=== PATIENT | female | born 1975 | race Caucasian/White ===

== ENCOUNTER 2018-07-25 09:58 | Observation (INO) | payer BC ==
[2018-07-25 10:14] LABS: BASOPHILS % 0.5 (0.0-1.5); EOSINOPHILS % 1.3 % (0.0-6.8); MEAN CORPUSCULAR HEMOGLOBIN 30.5 pg (28.0-34.0); MONOCYTES % 4.1 % (0.0-11.0); NEUTROPHILS # 6.9 # k/uL (1.4-7.7)
[2018-07-25 10:32] LABS: eGFR (Non-African) > 60
--- NOTE | 2018-07-25 10:41 | Diagnostic Imaging Report ---
BHARAT ALLEN [facility] [address] [facility].[address] [address] Report Submission Date: Jul 25, 2018 10:37:55 AM SUPERVISOR PLASMA Patient Study Name: MALACHI HESTER Date: Jul 25, 2018 10:11:46 AM SUPERVISOR PLASMA Modality Type: DX Gender: F Description: ABDOMEN : 79 Institution: [facility] Physician: BHARAT ALLEN KUB History: Sudden onset of groin pain with nausea and vomiting Two supine views of the abdomen demonstrate a nonobstructive bowel gas pattern. There is increased stool in the right colon. No abnormal calcifications are noted. Surgical clips are present in the pelvis. Small sclerotic foci are present of the superior and inferior left pubic rami and of the left ilium, likely bone islands. The largest is of the left ilium measuring 1.2 cm. Impression: Increased stool in the right colon. Otherwise, nonobstructive bowel gas pattern. Surgical clips in the pelvis. Probable bone islands of the left hemipelvis as described. Electronically signed on Jul 25, 2018 10:37:55 AM SUPERVISOR PLASMA by: China CARDOSO
[2018-07-25 11:12] LABS: APPEARANCE,URINE CLEAR (CLEAR); COLOR,URINE YELLOW (YELLOW); OCCULT BLOOD,URINE TRACE-INTACT (NEGATIVE); PH URINE 6.5 (5.0 - 8.0); UROBILINOGEN URINE 0.2 Eu (0.2-1.0)
[2018-07-25] MEDS ORDERED: ONDANSETRON HCL 4 MG TAB.RAPDIS ONE (12:00)
[2018-07-25] MEDS ORDERED: PROMETHAZINE HCL 25 MG in 0.9 % SODIUM CHLORIDE 50 ML IV PRN (14:43)
[2018-07-25 15:21] VITALS: BMI 25.2
[2018-07-25] MEDS: 0.9 % SODIUM CHLORIDE 1,000 ML IV SCH (15:39)
[2018-07-25] MEDS ORDERED: MORPHINE SULFATE 4 MG/ML PREFILLED SYR ONE (20:04)
[2018-07-25] MEDS: ONDANSETRON HCL/PF 4 MG/ 2ML VIAL IVP PRN (20:08)
[2018-07-25] MEDS: MORPHINE SULFATE 4 MG/ML VIAL IVP PRN (20:10)
[2018-07-26] MEDS: 0.9 % SODIUM CHLORIDE 1,000 ML IV SCH ×2 (03:35→12:42)
--- NOTE | 2018-07-26 07:51 | Inpatient Progress Note ---
Objective - Exam Vitals and I&O: Vital Signs Temp 98.5 F 07/26/18 06:00 Pulse 62 07/26/18 06:00 Resp 18 07/26/18 06:00 BP 90/50 07/26/18 06:00 Pulse Ox 99 07/26/18 06:00 Intake & Output 07/25/18 07/25/18 07/26/18 11:59 23:59 11:59 Intake Total 560 100 Output Total 600 Balance -40 100 Weight 68.946 kg Intake: IV 200 100 Right Antecubital 200 100 Oral 360 Output: Urine 600 Other: Voiding Method Toilet Toilet # Voids 2 - Results Results: Laboratory Results WBC 9.80 K/ul (4.00-12.00) 07/25/18 10:00 RBC 4.87 M/ul (3.90-5.20) 07/25/18 10:00 Hgb 14.8 g/dL (12.0-16.0) 07/25/18 10:00 Hct 44.3 % (34.5-46.5) 07/25/18 10:00 MCV 91.0 fl (80.0-100.0) 07/25/18 10:00 MCH 30.5 pg (28.0-34.0) 07/25/18 10:00 MCHC 33.5 g/dL (30.0-36.0) 07/25/18 10:00 RDW 12.5 % (11.3-14.3) 07/25/18 10:00 Plt Count 270 K/mm3 (130-400) 07/25/18 10:00 Neut % (Auto) 70.2 % (39.0-79.0) 07/25/18 10:00 Lymph % (Auto) 23.9 % (16.0-50.0) 07/25/18 10:00 [place] % (Auto) 4.1 % (0.0-11.0) 07/25/18 10:00 Eos % (Auto) 1.3 % (0.0-6.8) 07/25/18 10:00 Baso % (Auto) 0.5 (0.0-1.5) 07/25/18 10:00 Neut # (Auto) 6.9 # k/uL (1.4-7.7) 07/25/18 10:00 Lymph # (Auto) 2.3 # k/uL (0.6-4.0) 07/25/18 10:00 [place] # (Auto) 0.4 # k/uL (0.0-0.9) 07/25/18 10:00 Eos # (Auto) 0.1 # k/uL (0.0-0.6) 07/25/18 10:00 Baso # (Auto) 0.1 # k/uL (0.0-0.5) 07/25/18 10:00 Sodium 136 mmol/L (136-145) 07/25/18 10:00 Potassium 3.5 mmol/L (3.5-5.1) 07/25/18 10:00 Chloride 103 mmol/L (98-107) 07/25/18 10:00 Carbon Dioxide 27 mmol/L (22-30) 07/25/18 10:00 BUN 11 mg/dL (7-17) 07/25/18 10:00 Creatinine 0.68 mg/dL (0.52-1.04) 07/25/18 10:00 Est GFR ( Amer) > 60 (60-) 07/25/18 10:00 Est GFR (Non-Af Amer) > 60 (60-) 07/25/18 10:00 Glucose 95 mg/dL (74-106) 07/25/18 10:00 Calcium 8.6 mg/dL (8.4-10.2) 07/25/18 10:00 Total Bilirubin 0.8 mg/dL (0.2-1.3) 07/25/18 10:00 AST 23 U/L (15-46) 07/25/18 10:00 ALT 23 U/L (13-69) 07/25/18 10:00 Alkaline Phosphatase 70 U/L (38-126) 07/25/18 10:00 Total Protein 7.1 g/dL (6.3-8.2) 07/25/18 10:00 Albumin 4.5 g/dL (3.5-5.0) 07/25/18 10:00 Lipase 81 U/L (23-300) 07/25/18 10:00 Urine Color Yellow (YELLOW) 07/25/18 10:20 Urine Appearance Clear (CLEAR) 07/25/18 10:20 Urine pH 6.5 (5.0 - 8.0) 07/25/18 10:20 Ur Specific Botkins >=1.030 (1.010-1.030) H 07/25/18 10:20 Urine Protein Negative mg/dL (NEGATIVE) 07/25/18 10:20 Urine Ketones Trace mg/dL (NEGATIVE) H 07/25/18 10:20 Urine Occult Blood Trace-intact (NEGATIVE) H 07/25/18 10:20 Urine Nitrite Negative (NEGATIVE) 07/25/18 10:20 Urine Bilirubin Negative (NEGATIVE) 07/25/18 10:20 Urine Urobilinogen 0.2 Eu (0.2-1.0) 07/25/18 10:20 Ur Leukocyte Esterase Negative (NEGATIVE) 07/25/18 10:20 Urine Glucose Negative mg/dL (NEGATIVE) 07/25/18 10:20
[2018-07-26 09:05] LABS: eGFR (Non-African) > 60
--- NOTE | 2018-07-26 09:08 | Diagnostic Imaging Report ---
BHARAT ALLEN [facility] [address] [facility] [address] [place] [address]. [id number] Report Submission Date: Jul 26, 2018 9:07:26 AM PSYCH SOCIAL WORKER Patient Study Name: MALACHI HESTER Date: Jul 26, 2018 8:08:44 AM PSYCH SOCIAL WORKER Modality Type: CT Gender: F Description: CT ABD PELVIS W/ CON : 79 Institution: [facility] Physician: BHARAT ALLEN Examination: CT Abdomen/pelvis History: WORSENING ABDOMINAL PAIN WITH NAUSEA, VOMITING, AND DIARRHEA. HX OF HYSTERECTOMY AND TUBAL LIGATION Comparison exams: Plain film dated 25 July 2018 Technique: CT Abdomen/pelvis with IV protocol. Findings: Liver demonstrates a 1 cm cyst within the posterior aspect of the right hepatic lobe. Spleen, adrenals, pancreas and kidneys are without gross central irregularity. Possible 1 mm calcification involving the gallbladder lumen. No suspicious renal calcifications. Ureters are nondilated in their course through the abdomen and pelvis. No central calcifications. Bladder margin within normal limits. Abdominal aorta without aneurysm or peripheral atherosclerotic disease. Cardiac silhouette is not enlarged. No pericardial effusion. Free fluid projecting around the liver. Large cystic structure within the central lower pelvis measuring 6.2 cm diameter. Minimal peripheral enhancement. Surgical clips along the inferior margin. Fluid and mesenteric stranding within the lower pelvic region. Mesenteric stranding extending along the right posterior gutter region. Small bowel with few scattered air-fluid levels. Possible mild distal small bowel mucosal thickening. Appendix not visualized. Fluid within the large bowel. Osseous structures appropriate for age. Lung bases demonstrate dependent atelectasis without infiltrate. No effusion. Bilateral breast implants. Impression: Large cystic structure within the lower pelvis measuring 6.2 cm diameter. Adjacent fluid and mesenteric stranding. Could represent sequela of patient's reported prior surgery. Infectious/inflammatory process, such as abscess, cannot be excluded. Abdominal fluid/ascites tracking around the liver with mesenteric stranding involving the right gutter region. Few scattered small bowel air fluid levels with questionable mucosal thickening involving the distal small bowel. Possible small gallstone. Further evaluate with right upper quadrant ultrasound if clinically warranted. No suspicious renal calcifications or abnormal ureteric dilation. No lung base consolidation or effusion. Electronically signed on Jul 26, 2018 9:07:26 AM PSYCH SOCIAL WORKER by: Alvin CARDOSO
[2018-07-26 09:26] LABS: BASOPHILS % 0.2 (0.0-1.5); EOSINOPHILS % 1.6 % (0.0-6.8); MEAN CORPUSCULAR HEMOGLOBIN 30.4 pg (28.0-34.0); MONOCYTES % 5.2 % (0.0-11.0); NEUTROPHILS # 4.8 # k/uL (1.4-7.7)
[2018-07-26] MEDS: ONDANSETRON HCL/PF 4 MG/ 2ML VIAL IVP PRN (10:26)
[2018-07-26] MEDS: MORPHINE SULFATE 4 MG/ML VIAL IVP PRN (10:27)
[2018-07-26 10:59] VITALS: BP 132/58
--- NOTE | 2018-07-28 18:09 | Discharge Summary ---
Discharge Summary - Discharge Sumary History of Present Illness: (Admitted on 07/25/18) Patient was at work when she had a sudden onset of N/V and abdominal pain. She was feeling fine around 8 a.m. and by 9:00 symptoms had worsened. She eventually checked into the ER. She does not feel that she ate or drank anything that could of caused symptoms. She denies any fever or chills, no chest pain or shortness of breath. Condition at Discharge: Stable Home Medications: Ambulatory Orders Medication Instructions Recorded Alprazolam [Xanax] 0.25 mg PO DAILY PRN u2 02/18/17 Multivitamin [Multi-Vitamin Daily] 1 each PO DAILY u2 02/18/17 Trintellix 5 mg PO DAILY u2 02/18/17 Consultations this Visit: Other (Acute surgery at [facility]- Dr. Araujo) Procedures this Visit: Other (CT of abdomen and Pelvis) Allergies/Adverse Reactions: Allergies Allergy/AdvReac Type Severity Reaction Status Date / Time ibuprofen Allergy Unknown Verified 07/25/18 16:32 Discharge Summary: 07/26/18 Patient continued to have nausea and abdominal pain- not really improving- ct of abdomen and pelvis completed and mass was found. Discussed results with Dr. Araujo (surgery) at the [facility] (per pt request) and he suggested transferring her to [facility] to be evaluated- pt is in agreement- transfer arranged and patient transferred to [place] via EMS Hospital Course: CT of Abdomen and Pelvis: Impression: Large cystic structure within the lower pelvis measuring 6.2 cm diameter. Adjacent fluid and mesenteric stranding. Could represent sequela of patient's reported prior surgery. Infectious/inflammatory process, such as abscess, cannot be excluded. Abdominal fluid/ascites tracking around the liver with mesenteric stranding involving the right gutter region. Few scattered small bowel air fluid levels with questionable mucosal thickening involving the distal small bowel. - Final Diagnosis (1) Pelvic mass in female Problems: Will see surgeon Right or Left: Right (2) Nausea & vomiting Problems: antiemetics ordered throughout hospitalization Right or Left: Right (3) Abdominal pain Problems: Treated with pain medications Right or Left: Right
== END 2018-07-26 12:05 | disposition short-term general hospital (02) ==
LOC: ED 09:58 → SOUTH 14:40
PROVIDERS: ADMIT Nurse Practitioner Family; ATTEND Nurse Practitioner Family
DX: R19.03 Right lower quadrant abdominal swelling, mass and lump (principal); R11.2 Nausea with vomiting, unspecified
CPT/HCPCS: 74018; 74177; 80048; 80053; 81002; 83690; 85025; 96374; 96375; A9270; G0378; J2270; J2405; J2550; J7030; Q9967; 99217; S1016

== ENCOUNTER 2018-09-05 09:13 | Day surgery (SDC) | payer BC ==
[~2018-09-05 09:13] MED LIST: LACTATED RINGERS 1,000 ML IV.SOLN IV ONE; LIDOCAINE HCL 2% PF 100MG/5ML VIAL IJ ONE; PROPOFOL 500 MG/50 ML VIAL IV ONE
--- NOTE | 2018-09-20 13:52 | GI Report ---
PROCEDURE PERFORMED: Colonoscopy with biopsies. SURGEON: Ruthy Hamilton M.D., ZaydaCEugene. INDICATION FOR PROCEDURE: The patient is a 43-year-old woman who has change in bowel habits, mucus in the stool, abdominal pain. She had a CAT scan 07/26/18 because of pain and vomiting. She had a cyst in her pelvis and there was a question of mucosal thickening of the distal small bowel. The patient has a number of family members with Crohns disease. She has never been a smoker. She has had a hysterectomy, and then a recent laparoscopic repair of a torsion of her ovary in July 2018. She is referred for the above indications. PROCEDURE MEDICATION: Propofol, as per Anesthesia. DESCRIPTION OF PROCEDURE: The Olympus video colonoscope was advanced into the rectum. The patient has a slightly atonic, redundant colon. I see no diverticula. It took some maneuvering to finally reach the cecum. The appendiceal orifice was normal. The terminal ileum was normal. We advanced about 8 cm up the terminal ileum. I saw no ulceration. We did take 3 biopsies for pathology. On slow withdrawal, the cecum, ascending colon and transverse colon, redundancy but normal mucosa. No ulceration. The transverse colon, descending colon and sigmoid colon, again redundancy. No obvious ulceration. We did take random biopsies throughout the colon looking for microscopic colitis. The sigmoid colon I dont see diverticula. No obvious ulceration. Retroflexion in the rectum was normal. The patient tolerated the procedure well. FINDINGS: The patient has kind of a redundant, spastic colon. Biopsies were taken both of the small bowel and the colon looking for microscopic colitis, though grossly it looks normal. RECOMMENDATIONS: 1. At present pending the biopsy results would add fiber to her diet such as Benefiber, possibly a low FODMAP diet decreasing carbohydrates fermentable such as wheat and using low lactose. 2. Follow up biopsy results. 3. If her pain persists at some point, small bowel evaluation would be a consideration such as capsule endoscopy and/or small bowel x-ray. RUTHY HAMILTON M.D., F.A.C.P. [facility]LE[facility]/suni R: 09/19/18 Job#: [id number] Cc: LILI Scruggs [id number] [facility] [place] [address] Sent via ] JANAE
== END 2018-09-05 11:59 | disposition home or self-care (01) ==
LOC: OPSURG 09:13
PROVIDERS: ATTEND Internal Medicine Gastroenterology
DX: K59.8 Other specified functional intestinal disorders (principal); R10.9 Unspecified abdominal pain; R19.4 Change in bowel habit; R19.5 Other fecal abnormalities
CPT/HCPCS: 45380; J2001; J2704; J7120; S1016

== ENCOUNTER 2019-03-30 16:39 | Outpatient (CLI) | payer BC ==
--- NOTE | 2019-03-30 19:01 | Diagnostic Imaging Report ---
BHARAT ALLEN [facility] [address] [facility] [address] [address] Report Submission Date: Mar 30, 2019 5:17:24 PM CDT Patient Study Name: MALACHI HESTER Date: Mar 30, 2019 4:46:46 PM CDT Modality Type: DX Gender: F Description: CHEST 2VIEW : 79 Institution: [facility] Physician: BHARAT ALLEN Pa and lateral chest Clinical history :short of breath coughing Technique pa and lateral upright Findings: The lung duff are clear. I see no hilar or mediastinal mass. There is no pleural effusion or lesion of the bony thorax. Impression: No acute pulmonary disease Electronically signed on Mar 30, 2019 5:17:24 PM CDT by: Carlos CARDOSO
== END 2019-03-30 16:42 ==
LOC: RAD 16:39
PROVIDERS: ATTEND Nurse Practitioner Family
DX: R05 Cough (principal); R06.02 Shortness of breath
CPT/HCPCS: 71046